=== PATIENT | female | born 1995 | race African-American/Black ===

== ENCOUNTER 2017-10-02 01:01 | Emergency (ER) | payer BC ==
[~2017-10-02] VITALS: Ht 162.6 cm; Wt 58.0 kg
[~2017-10-02 01:01] MED LIST: AMOX500C2 PO; NO MEDS TAKEN
[2017-10-02 01:11] VITALS: Ht 162.6 cm; Wt 58.0 kg
[2017-10-02] MEDS ORDERED: LORAZEPAM 2 MG INJ ONE (01:26)
[2017-10-02] MEDS ORDERED: LORAZEPAM 2 MG INJ IM ONE (01:30)
[2017-10-02] MEDS ORDERED: HALOPERIDOL 5 MG INJ ONE (01:45)
[2017-10-02] MEDS ORDERED: HALOPERIDOL 5 MG INJ IM ONE (02:00)
--- NOTE | 2017-10-02 02:57 | ERD ---
ER Documentation Chief Complaint Chief Complaint per mom pt took acid and marijuana and is acting erratic and is altered HPI This is a 21-year-old female who is sent in by ambulance for substance abuse. The patient's mom called EMS because she told them she smoked marijuana and took LSD. Patient was having erratic behavior. On arrival the patient states she took LSD and MDMA/ecstasy. The patient is denying any complaints. The patient is very limited history she is speaking tangentially and trying to pull her clothes off and get out of the bed. There is no evidence of trauma noted ROS All systems reviewed and are negative except as per history of present illness. Medications Home Meds Active Scripts Amoxicillin* (Amoxicillin*) 500 Mg Cap, 500 MG PO TID for 10 Days, CAP Prov:ANT FIGUEROA NP 10/24/15 Reported Medications [None] No Conflict Check 08/19/13 [No Meds Taken] No Conflict Check 06/07/13 Allergies Allergies: Coded Allergies: No Known Allergy (Unverified , 09/21/13) PMhx/Soc Medical and Surgical Hx: pt denies Medical Hx, pt denies Surgical Hx Hx Alcohol Use: No Hx Substance Use: Yes Hx Tobacco Use: No Smoking Status: Unknown if ever smoked FmHx Unable to obtain due to mental status Physical Exam Vitals Vital Signs Date Time Temp Pulse Resp B/P Pulse Ox O2 Delivery O2 Flow Rate FiO2 10/02/17 01:11 100.0 94 16 98/52 100 Physical Exam Const: Head: Atraumatic Eyes: Normal Conjunctiva ENT: Normal External Ears, Nose and Mouth. Neck: Full range of motion..~ No meningismus. Resp: Clear to auscultation bilaterally Cardio: Regular rate and rhythm, no murmurs Abd: Soft, non tender, non distended. Normal bowel sounds Skin: No petechiae or rashes Back: No midline or flank tenderness Ext: No cyanosis, or edema Neur: Awake and alert Psych: Tangential conversation, follows basic commands, agitated at times Results 24 hrs Current Medications Medications (Trade) Dose Ordered Sig/Clifford Route PRN Reason Start Time Stop Time Status Last Admin Dose Admin Lorazepam (Ativan) 2 mg STK-MED ONCE .ROUTE 10/02/17 01:26 10/02/17 01:27 DC Lorazepam (Ativan) 2 mg ONCE ONCE IM 10/02/17 01:30 10/02/17 01:34 DC 10/02/17 01:39 Haloperidol (Haldol) 5 mg ONCE ONCE IM 10/02/17 02:00 10/02/17 02:01 DC 10/02/17 01:48 Haloperidol (Haldol) 5 mg STK-MED ONCE .ROUTE 10/02/17 01:45 10/02/17 01:46 DC Procedures/MDM Patient was given Ativan and Haldol to calm her down. She is currently resting comfortably. Will let her sleep off the drugs and reassess her in the morning. Patient will discharge home when she is awake and alert oriented stable ambulatory without difficulty can contact some family members Departure Diagnosis: Primary Impression: Substance abuse Condition: Stable BRITT DAIGLE DO Oct 02, 2017 02:57
[2017-10-02 07:27] VITALS: BP 99/55; PULSE 74; RESP 18; TEMP 97.6
== END 2017-10-02 07:28 | disposition home or self-care (01) ==
LOC: E/R 01:01
DX: F12.10 Cannabis abuse, uncomplicated (principal); F16.10 Hallucinogen abuse, uncomplicated; R40.2132 Coma scale, eyes open, to sound, at arrival to emergency department; R40.2242 Coma scale, best verbal response, confused conversation, at arrival to emergency department; R40.2362 Coma scale, best motor response, obeys commands, at arrival to emergency department
CPT/HCPCS: 96372; J1630; J2060; Z7502